=== PATIENT | male | born 1990 | race Caucasian/White ===

== ENCOUNTER 2017-08-23 18:48 | Inpatient (IN) | payer OTHER ==
[2017-08-23 21:05] VITALS: BMI 31.1
--- NOTE | 2017-08-23 21:50 | HP ---
Admission ROS [facility] Chief Complaint: SEEKING REHAB SERVICES. Allergies/Adverse Reactions: Allergies Allergy/AdvReac Type Severity Reaction Status Date / Time No Known Allergies Allergy Verified 08/23/17 21:46 History of Present Illness: 27 Y.O. MAN WITH AN EXTENSIVE HISTORY OF MARIJUANA DEPENDENCE IS HERE SEEKING REHAB SERVICES. STATES HE WAS MANDATED BY PAROLE TO COMPLETE INPATIENT TREATMENT. Exam Limitations: Physical Impairment (AMBULATES WITH THE USE OF A CANE) - Ebola screening Have you been sick,other than usual withdrawal symptoms: No - Review of Systems Constitutional: No Symptoms Reported EENT: reports: No Symptoms Reported Respiratory: reports: No Symptoms reported Cardiac: reports: No Symptoms Reported GI: reports: No Symptoms Reported : reports: No Symptoms Reported Musculoskeletal: reports: No Symptoms Reported Integumentary: reports: Other (BLISTER ON BOTH HEELS) Neuro: reports: No Symptoms reported Endocrine: reports: No Symptoms Reported Hematology: reports: No Symptoms Reported Psychiatric: reports: Orientated x3, other (PARANOID SCHIZOPHRENIA) Other Systems: Reviewed and Negative Patient History - Patient Medical History Hx Anemia: No Hx Asthma: No Hx Chronic Obstructive Pulmonary Disease (COPD): No Hx Cancer: No Hx Cardiac Disorders: No Hx Congestive Heart Failure: No Hx Hypertension: No Hx Hypercholesterolemia: No Hx Pacemaker: No HX Cerebrovascular Accident: No Hx Seizures: No Hx Dementia: No Hx Diabetes: No Hx Gastrointestinal Disorders: No Hx Liver Disease: No Hx Genitourinary Disorders: No Hx Sexually Transmitted Disorders: No Hx Renal Disease (ESRD): No Hx Thyroid Disease: No Hx Human Immunodeficiency Virus (HIV): No Hx Hepatitis C: No Hx Depression: No Hx Suicide Attempt: No Hx Bipolar Disorder: No Hx Schizophrenia: Yes - Patient Surgical History Past Surgical History: No - PPD History Previous Implant?: Yes Documented Results: Negative w/o proof PPD to be Administered?: Yes - Reproductive History Patient is a Female of Child Bearing Age (11 -55 yrs old): No - Smoking Cessation Smoking history: Current every day smoker Have you smoked in the past 12 months: Yes Aproximately how many cigarettes per day: 20 Initiated information on smoking cessation: Yes 'Breaking Loose' booklet given: 08/23/17 - Substance & Tx. History Hx Alcohol Use: No Hx Substance Use: Yes Substance Use Type: Marijuana Hx Substance Use Treatment: Yes (DECEMBER 2016: REHAB AT [facility] ) - Substances Abused Marijuana/Hashish Route: Smoking Frequency: 1-3 times last 30 days Amount used: $100 Age of first use: 12 Date of Last Use: 08/21/17 Family Disease History - Family Disease History Family Disease History: Diabetes: Grandparent (BREAST C ), [place]: Grandparent Admission Physical Exam [facility] - Vital Signs Vital Signs: Vital Signs - 24 hr 08/23/17 21:03 Temperature 98.1 F Pulse Rate 93 H Respiratory 18 Rate Blood Pressure 143/79 - Physical General Appearance: Yes: Disheveled HEENTM: Yes: Hearing grossly Normal, Normocephalic, Normal Voice Respiratory: Yes: Chest Non-Tender, Lungs Clear, Normal Breath Sounds, No Respiratory Distress, No Accessory Muscle Use Neck: Yes: No masses,lesions,Nodules, Trachea in good position Breast: Yes: Breast Exam Deferred Cardiology: Yes: Regular Rhythm, Regular Rate Abdominal: Yes: Non Tender, Flat, Soft Genitourinary: Yes: Other (NO COMPLAINTS REPORTED) Back: Yes: Normal Inspection Musculoskeletal: Yes: Other (UNSTEADY GAIT: AMBULATES WITH) Extremities: Yes: Normal Inspection, Other (BLISTERS ON HIS B/L HEELS) Neurological: Yes: Alert, Normal Mood/Affect, Normal Response Integumentary: Yes: Normal Color, Dry, Warm Lymphatic: Yes: Within Normal Limits - Diagnostic (1) Cannabis dependence, uncomplicated Current Visit: Yes Status: Chronic (2) Unsteady gait Current Visit: Yes Status: Chronic (3) Rhabdomyolysis Current Visit: Yes Status: Chronic Cleared for Admission [facility] - Detox or Rehab [facility] Level of Care: Observation Bed [facility] Breath Alcohol Content Breath Alcohol Content: 0 Urine Drug Screen - Results Drug Screen Negative: No Urine Drug Screen Results: THC-Marijuana Inpatient Rehab Admission - Initial Determination Are CD services needed?: Yes Free of communicable disease: Yes Not in need of hospitalization: Yes - Rehab Admission Criteria Previous failed treatment: Yes Poor recovery environment: No Comorbidities: No Lacks judgement: No Patient is meeting Inpatient Rehab admission criteria:: Yes
[2017-08-23] MEDS ORDERED: P-EPHED 60MG/TRIPROLIDI 2.5MG TABLET PO PRN (22:24)
[2017-08-23] MEDS ORDERED: MAG HYDROX/AL HYDROX/SIMETH 30 ML UNIT-DOSE CUP PO PRN (22:24)
[2017-08-23] MEDS ORDERED: NICOTINE POLACRILEX 2 MG GUM BC PRN (22:24)
[2017-08-23] MEDS ORDERED: guaiFENesin/D-METHORPHAN HB 10 ML UNIT-DOSE CUPS PO PRN (22:24)
[2017-08-23] MEDS ORDERED: IBUPROFEN 400 MG TABLET (FP) PO PRN (22:24)
[2017-08-23] MEDS ORDERED: MENTHOL/PHENOL 1 EACH UD MM PRN (22:24)
[2017-08-23] MEDS ORDERED: hydrOXYzine PAMOATE 50 MG CAPSULE (FP) PO PRN (22:24)
[2017-08-23] MEDS ORDERED: ACETAMINOPHEN 325 MG TABLET (FP) PO PRN (22:24)
[2017-08-23] MEDS ORDERED: MAGNESIUM CITRATE 300 ML BOTTLE PO PRN (22:24)
[2017-08-23] MEDS ORDERED: MAGNESIUM HYDROX 2400MG/30ML ORAL SUSPENSION 30 ML CUP PO PRN (22:24)
[2017-08-23] MEDS ORDERED: TUBERCULIN PPD 5 TU/0.1ML VIAL ID ONE (23:00)
[2017-08-24] MEDS: NICOTINE 21 MG/24 HOURS TOPICAL PATCH TD SCH (09:54)
[2017-08-24] MEDS: PRENATAL VITAMINS W/ FOLIC ACID TABLET (FP) PO SCH (09:54)
[2017-08-24 10:04] LABS: HEMATOCRIT 43.1 % (35.4-49); HEMOGLOBIN 13.9 GM/dL (11.7-16.9); MCHC 32.4 g/dl (32.0-35.9); MEAN CELL VOLUME 86.4 fl (80-96); MEAN PLT VOLUME 9.5 fl (7.5-11.1); PLATELET COUNT 169 K/MM3 (134-434); RBC 4.99 M/mm3 (4.00-5.60); RDW 12.6 % (11.9-15.9); WHITE BLOOD COUNT 7.8 K/mm3 (4.0-10.0)
[2017-08-24 10:19] LABS: CHLORIDE 108 mmol/L (98-107); POTASSIUM 4.1 mmol/L (3.5-5.1); SODIUM 142 mmol/L (136-145)
[2017-08-24 10:29] LABS: ALBUMIN 3.2 g/dl (3.4-5.0); ALK PHOS 77 U/L (45-117); ANION GAP 9 (8-16); BILIRUBIN,TOTAL 0.4 mg/dL (0.2-1.0); BLOOD UREA NITROGEN 12 mg/dL (7-18); CALCIUM 8.3 mg/dL (8.5-10.1); CO2 25 mmol/L (21-32); CREATININE 0.8 mg/dL (0.7-1.3); GLUCOSE,RANDOM 92 mg/dL (74-106); SGOT/AST 21 U/L (15-37); SGPT/ALT 26 U/L (12-78); TOT PROT 6.4 g/dl (6.4-8.2)
[2017-08-24] MEDS: THIAMINE HCL 100 MG TABLET (FP) PO SCH (21:19)
--- NOTE | 2017-08-25 07:19 | EKG ---
Test Reason : Blood Pressure : / mmHG Vent. Rate : 076 BPM Atrial Rate : 076 BPM P-R Int : 136 ms QRS Dur : 082 ms QT Int : 380 ms P-R-T Axes : 055 074 052 degrees QTc Int : 427 ms NORMAL SINUS RHYTHM NORMAL ECG NO PREVIOUS ECGS AVAILABLE BASELINE ARTIFACT Confirmed by NAM COLEMAN, MARTITA ([id number]) on 08/25/2017 7:19:03 AM Referred By: Confirmed By:MARTITA BROWNING MD
[2017-08-25] MEDS: NICOTINE 21 MG/24 HOURS TOPICAL PATCH TD SCH (09:32)
[2017-08-25] MEDS: PRENATAL VITAMINS W/ FOLIC ACID TABLET (FP) PO SCH (09:32)
[2017-08-25 10:09] LABS: URINE APPEARANCE CLEAR; URINE BILIRUBIN NEGATIVE (NEGATIVE); URINE BLOOD 1+ (NEGATIVE); URINE COLOR LTYELLOW; URINE GLUCOSE (UA) NEGATIVE (NEGATIVE); URINE KETONE NEGATIVE (NEGATIVE); URINE LEUK ESTERASE NEGATIVE (NEGATIVE); URINE NITRITE NEGATIVE (NEGATIVE); URINE PROTEIN NEGATIVE (NEGATIVE); URINE UROBILINOGEN NEGATIVE mg/dL (0.2-1.0)
[2017-08-25 10:55] LABS: URINE HYALINE CAST 2 /lpf
[2017-08-25] MEDS: THIAMINE HCL 100 MG TABLET (FP) PO SCH (21:19)
[2017-08-26] MEDS: PRENATAL VITAMINS W/ FOLIC ACID TABLET (FP) PO SCH (09:35)
[2017-08-26] MEDS: NICOTINE 21 MG/24 HOURS TOPICAL PATCH TD SCH (09:35)
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
[2017-08-26] MEDS: THIAMINE HCL 100 MG TABLET (FP) PO SCH (21:16)
[2017-08-27] MEDS: PRENATAL VITAMINS W/ FOLIC ACID TABLET (FP) PO SCH (09:39)
[2017-08-27] MEDS: NICOTINE 21 MG/24 HOURS TOPICAL PATCH TD SCH (09:39)
--- NOTE | 2017-08-27 15:36 | PN ---
Psychiatric Progress Note Vital Signs: Vital Signs Period Temp Pulse Resp BP Sys/Davis Pulse Ox Last 24 Hr 98.0 F 78 16-20 103/56 Date of Session: 08/27/17 Chief Complaint:: progress update HPI: Patient is a 27 year old male with history of cannabis dependence comrbid schizophrenia. ROS: Was admited to [facility] for rhabdomyolysis and was discharged on 08/22/17. Ambulates with a cane secondary to muscle weakness and blisters on bilateral feet. Current Medications: Active Medications Generic Name Dose Route Start Last Admin Trade Name Freq PRN Reason Stop Dose Admin Acetaminophen 650 mg 08/23/17 22:24 Tylenol - PO Q4H PRN PAIN Al Hydroxide/Mg Hydroxide 30 ml 08/23/17 22:24 Mylanta Oral Suspension - PO Q6H PRN DYSPEPSIA Eucalyptus/Menthol/Phenol/Sorbitol 1 each 08/23/17 22:24 Cepastat Lozenge - MM Q4H PRN SORE THROAT Guaifenesin 10 ml 08/23/17 22:24 Robitussin Dm - PO Q6H PRN COUGH Hydroxyzine Pamoate 50 mg 08/23/17 22:24 Vistaril - PO Q4H PRN AGITATION Ibuprofen 400 mg 08/23/17 22:24 08/24/17 13:32 Motrin - PO 400 mg Q6H PRN Administration SEVERE PAIN Loperamide HCl 4 mg 08/23/17 22:24 Imodium - PO Q6H PRN DIARRHEA Magnesium Citrate 300 ml 08/23/17 22:24 Citroma - PO Q48H PRN CONSTIPATION Magnesium Hydroxide 30 ml 08/23/17 22:24 Milk Of Magnesia - PO DAILY PRN CONSTIPATION Nicotine 21 mg 08/24/17 10:00 08/27/17 09:39 Nicoderm Patch - TD Not Given DAILY KYLAH Nicotine Polacrilex 2 mg 08/23/17 22:24 Nicorette Gum - BC Q2H PRN NICOTINE REPLACEMENT RX Multivit/Folic Acid/Iron 1 tab 08/24/17 10:00 08/27/17 09:39 Vitamins (Sjr) - PO Not Given DAILY KYLAH Pseudoephedrine/Triprolidine 1 combo 08/23/17 22:24 Actifed - PO TID PRN NASAL CONGESTION Thiamine HCl 100 mg 08/24/17 22:00 08/26/17 21:16 Vitamin B1 - PO Not Given HS KYLAH Current Side Effect: No Lab tests ordered: No Lab tests reviewed: Yes Provider note:: Reviewed the chart, TAL Ojeda admission notes appreciated, patient was seen, he reports he has been in [facility], does not recall his pyshciatrist name, states was on Invega Sustenna injection 156 mg , had on 07/31/17, as per his pharmacy record he refilled injection on July 02 and July 28. Call placed to [facility], was unable to speak to his case management assistant, patient unable to tell the name of his worker. Reported that Risperdal Consta injection worked better for him and willing to get Risprerdal injection. Plan to reach his program to verify his dosage, continue the same management. Total face to face time:: 25 Mental Status Exam - Mental Status Exam Alert and Oriented to: Time, Place, Person Cognitive Function: Impaired Patient Appearance: Unkempt, Disheveled Mood: Sad Affect: Blunted, Constricted Patient Behavior: Cooperative Speech Pattern: Appropriate Voice Loudness: Normal Thought Process: Goal Oriented Thought Disorder: Not Present Hallucinations: Denies Suicidal Ideation: Denies Homicidal Ideation: Denies Insight/Judgement: Fair Sleep: Fair Appetite: Fair Gait/Station: Other Psychiatric Treatment Plan - Problem List (1) Cannabis dependence, uncomplicated Current Visit: Yes (2) Rhabdomyolysis Current Visit: Yes (3) Schizophrenia Current Visit: Yes
[2017-08-27] MEDS: THIAMINE HCL 100 MG TABLET (FP) PO SCH (21:27)
[2017-08-28] MEDS: NICOTINE 21 MG/24 HOURS TOPICAL PATCH TD SCH (09:59)
[2017-08-28] MEDS: PRENATAL VITAMINS W/ FOLIC ACID TABLET (FP) PO SCH (09:59)
[2017-08-28] MEDS: PETROLATUM, WHITE 30 GM TUBE TP SCH ×2 (13:00→21:13)
--- NOTE | 2017-08-28 16:24 | PN ---
S Progress Note (SOAP) Subjective: Patient c/o cold sore on lips and requesting ointment for his lip. As per patient, he will ask his mother to bring otc ointment for him to put on his lip. Patient aware that any medication that his mother brings has to be sealed and it will be sent to pharmacy for labeling. Objective: 08/28/17 16:24 Last Vital Signs Temp Pulse Resp BP Pulse Ox 97.4 F L 76 20 106/54 08/28/17 06:40 08/28/17 06:40 08/28/17 06:40 08/28/17 06:40 PE: Mouth: moist mucous membrane, lower lip with small mildly erythemic papules Laboratory Tests 08/24/17 08/24/17 08/24/17 08:00 08:00 08:00 WBC 7.8 RBC 4.99 Hgb 13.9 Hct 43.1 MCV 86.4 MCH 28.0 MCHC 32.4 RDW 12.6 Plt Count 169 MPV 9.5 Sodium 142 Potassium 4.1 Chloride 108 H Carbon Dioxide 25 Anion Gap 9 BUN 12 Creatinine 0.8 Creat Clearance w eGFR > 60 Random Glucose 92 Calcium 8.3 L Total Bilirubin 0.4 AST 21 ALT 26 Alkaline Phosphatase 77 Total Protein 6.4 Albumin 3.2 L Urine Color Urine Appearance Urine pH Ur Specific Mears Urine Protein Urine Glucose (UA) Urine Ketones Urine Blood Urine Nitrite Urine Bilirubin Urine Urobilinogen Ur Leukocyte Esterase Urine WBC (Auto) Urine RBC (Auto) Hyaline Casts RPR Titer Nonreactive 08/25/17 09:30 WBC RBC Hgb Hct MCV MCH MCHC RDW Plt Count MPV Sodium Potassium Chloride Carbon Dioxide Anion Gap BUN Creatinine Creat Clearance w eGFR Random Glucose Calcium Total Bilirubin AST ALT Alkaline Phosphatase Total Protein Albumin Urine Color Ltyellow Urine Appearance Clear Urine pH 5.0 Ur Specific Mears 1.014 Urine Protein Negative Urine Glucose (UA) Negative Urine Ketones Negative Urine Blood 1+ H Urine Nitrite Negative Urine Bilirubin Negative Urine Urobilinogen Negative Ur Leukocyte Esterase Negative Urine WBC (Auto) <1 Urine RBC (Auto) None Hyaline Casts 2 RPR Titer Labs noted: UA shows 1+ blood Assessment: 08/28/17 16:28 Patient seen for cold sore on lip; noted with microscopic hematuria Plan: Cold sore: petrolatum jelly prn Microscopic hematuria: encouraged to drink more water, repeat UA
[2017-08-28] MEDS: THIAMINE HCL 100 MG TABLET (FP) PO SCH (21:13)
[2017-08-29] MEDS: PRENATAL VITAMINS W/ FOLIC ACID TABLET (FP) PO SCH (10:11)
[2017-08-29] MEDS: NICOTINE 21 MG/24 HOURS TOPICAL PATCH TD SCH (10:11)
[2017-08-29] MEDS: PETROLATUM, WHITE 30 GM TUBE TP SCH ×2 (10:11→22:19)
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
[2017-08-29] MEDS: THIAMINE HCL 100 MG TABLET (FP) PO SCH (21:11)
[2017-08-29] MEDS: risperiDONE 3 MG TABLET PO SCH (21:12)
[2017-08-30] MEDS: PETROLATUM, WHITE 30 GM TUBE TP SCH ×2 (11:07→21:16)
[2017-08-30] MEDS: NICOTINE 21 MG/24 HOURS TOPICAL PATCH TD SCH (11:07)
[2017-08-30] MEDS: PRENATAL VITAMINS W/ FOLIC ACID TABLET (FP) PO SCH (11:07)
[2017-08-30] MEDS: risperiDONE 3 MG TABLET PO SCH ×2 (11:07→21:16)
[2017-08-30 15:03] LABS: URINE APPEARANCE CLEAR; URINE BILIRUBIN NEGATIVE (NEGATIVE); URINE BLOOD NEGATIVE (NEGATIVE); URINE COLOR LTYELLOW; URINE GLUCOSE (UA) NEGATIVE (NEGATIVE); URINE KETONE NEGATIVE (NEGATIVE); URINE LEUK ESTERASE NEGATIVE (NEGATIVE); URINE NITRITE NEGATIVE (NEGATIVE); URINE PROTEIN NEGATIVE (NEGATIVE); URINE UROBILINOGEN NEGATIVE mg/dL (0.2-1.0)
[2017-08-30] MEDS: THIAMINE HCL 100 MG TABLET (FP) PO SCH (21:17)
[2017-08-31] MEDS: NICOTINE 21 MG/24 HOURS TOPICAL PATCH TD SCH (11:04)
[2017-08-31] MEDS: PRENATAL VITAMINS W/ FOLIC ACID TABLET (FP) PO SCH (11:04)
[2017-08-31] MEDS: PETROLATUM, WHITE 30 GM TUBE TP SCH ×2 (11:05→21:20)
[2017-08-31] MEDS: risperiDONE 3 MG TABLET PO SCH ×2 (11:05→21:20)
[2017-08-31] MEDS: THIAMINE HCL 100 MG TABLET (FP) PO SCH (21:20)
[2017-09-01] MEDS: LOPERAMIDE HCL 2 MG CAPSULE PO PRN (09:11)
[2017-09-01] MEDS: PETROLATUM, WHITE 30 GM TUBE TP SCH ×2 (09:14→21:18)
[2017-09-01] MEDS: PRENATAL VITAMINS W/ FOLIC ACID TABLET (FP) PO SCH (09:14)
[2017-09-01] MEDS: NICOTINE 21 MG/24 HOURS TOPICAL PATCH TD SCH (09:14)
[2017-09-01] MEDS: risperiDONE 3 MG TABLET PO SCH ×2 (09:14→21:17)
[2017-09-01] MEDS: THIAMINE HCL 100 MG TABLET (FP) PO SCH (21:18)
[2017-09-02] MEDS: NICOTINE 21 MG/24 HOURS TOPICAL PATCH TD SCH (10:40)
[2017-09-02] MEDS: PRENATAL VITAMINS W/ FOLIC ACID TABLET (FP) PO SCH (10:40)
[2017-09-02] MEDS: risperiDONE 3 MG TABLET PO SCH ×2 (10:41→21:23)
[2017-09-02] MEDS: PETROLATUM, WHITE 30 GM TUBE TP SCH ×2 (10:41→21:23)
--- NOTE | 2017-09-02 15:49 | PN ---
[facility] Progress Note Note: staff reported that patient refused Risperdal today, patient was seen and asked reason, he states "it was only once and will continue to take pills".
[2017-09-02] MEDS: THIAMINE HCL 100 MG TABLET (FP) PO SCH (21:24)
[2017-09-03] MEDS: risperiDONE 3 MG TABLET PO SCH ×2 (09:53→21:39)
[2017-09-03] MEDS: PRENATAL VITAMINS W/ FOLIC ACID TABLET (FP) PO SCH (09:53)
[2017-09-03] MEDS: PETROLATUM, WHITE 30 GM TUBE TP SCH ×2 (09:53→21:39)
[2017-09-03] MEDS: NICOTINE 21 MG/24 HOURS TOPICAL PATCH TD SCH (09:53)
[2017-09-03] MEDS: LOPERAMIDE HCL 2 MG CAPSULE PO PRN (12:36)
[2017-09-03] MEDS: THIAMINE HCL 100 MG TABLET (FP) PO SCH (21:39)
[2017-09-04] MEDS: PETROLATUM, WHITE 30 GM TUBE TP SCH ×2 (09:48→21:20)
[2017-09-04] MEDS: NICOTINE 21 MG/24 HOURS TOPICAL PATCH TD SCH (09:48)
[2017-09-04] MEDS: risperiDONE 3 MG TABLET PO SCH ×2 (09:48→21:20)
[2017-09-04] MEDS: PRENATAL VITAMINS W/ FOLIC ACID TABLET (FP) PO SCH (09:49)
[2017-09-04] MEDS: THIAMINE HCL 100 MG TABLET (FP) PO SCH (21:20)
[2017-09-05 06:36] VITALS: BP 116/69; PULSE 90; TEMP 98.1
[2017-09-05] MEDS: PETROLATUM, WHITE 30 GM TUBE TP SCH (09:13)
[2017-09-05] MEDS: NICOTINE 21 MG/24 HOURS TOPICAL PATCH TD SCH (09:13)
[2017-09-05] MEDS: PRENATAL VITAMINS W/ FOLIC ACID TABLET (FP) PO SCH (09:13)
[2017-09-05] MEDS: risperiDONE 3 MG TABLET PO SCH (09:13)
--- NOTE | 2017-09-05 09:59 | PN ---
Psychiatric Progress Note Vital Signs: Vital Signs Period Temp Pulse Resp BP Sys/Davis Pulse Ox Last 24 Hr 98.1 F 90 18-20 116/69 Date of Session: 09/05/17 Chief Complaint:: discharge visit HPI: Patient has addressed cannabis dependence comrbid schizophrenia. ROS: WNL Current Medications: Active Medications Generic Name Dose Route Start Last Admin Trade Name Freq PRN Reason Stop Dose Admin Acetaminophen 650 mg 08/23/17 22:24 Tylenol - PO Q4H PRN PAIN Al Hydroxide/Mg Hydroxide 30 ml 08/23/17 22:24 Mylanta Oral Suspension - PO Q6H PRN DYSPEPSIA Eucalyptus/Menthol/Phenol/Sorbitol 1 each 08/23/17 22:24 Cepastat Lozenge - MM Q4H PRN SORE THROAT Guaifenesin 10 ml 08/23/17 22:24 Robitussin Dm - PO Q6H PRN COUGH Hydroxyzine Pamoate 50 mg 08/23/17 22:24 Vistaril - PO Q4H PRN AGITATION Ibuprofen 400 mg 08/23/17 22:24 08/24/17 13:32 Motrin - PO 400 mg Q6H PRN Administration SEVERE PAIN Loperamide HCl 4 mg 08/23/17 22:24 09/03/17 12:36 Imodium - PO 4 mg Q6H PRN Administration DIARRHEA Magnesium Citrate 300 ml 08/23/17 22:24 Citroma - PO Q48H PRN CONSTIPATION Magnesium Hydroxide 30 ml 08/23/17 22:24 Milk Of Magnesia - PO DAILY PRN CONSTIPATION Nicotine 21 mg 08/24/17 10:00 09/05/17 09:13 Nicoderm Patch - TD Not Given DAILY KYLAH Nicotine Polacrilex 2 mg 08/23/17 22:24 Nicorette Gum - BC Q2H PRN NICOTINE REPLACEMENT RX Petrolatum 1 applic 08/28/17 12:45 09/05/17 09:13 Vaseline TP 09/07/17 12:44 Not Given BID KYLAH Multivit/Folic Acid/Iron 1 tab 08/24/17 10:00 09/05/17 09:13 Vitamins (Sjr) - PO Not Given DAILY KYLAH Pseudoephedrine/Triprolidine 1 combo 08/23/17 22:24 Actifed - PO TID PRN NASAL CONGESTION Risperidone 3 mg 08/29/17 22:00 09/05/17 09:13 Risperdal - PO 3 mg BID KYLAH Administration Thiamine HCl 100 mg 08/24/17 22:00 09/04/17 21:20 Vitamin B1 - PO Not Given HS KYLAH Current Side Effect: No Lab tests ordered: No Lab tests reviewed: Yes Provider note:: Patient has completed today his treatment and met his goals, will continue to address his issues at [facility]. He focused on importance of changning attitude for the utilization of supports available to prevent relapses. Patient responded well to medication managment, no side- effects reported, patient was encouraed to take medicatios as directed, scripts for Risperdal 3 mg po bid provided, patient is stable for discharge today. Total face to face time:: 20 Mental Status Exam - Mental Status Exam Alert and Oriented to: Time, Place Cognitive Function: Grossly Intact Patient Appearance: Well Groomed Mood: Hopeful Affect: Appropriate, Mood Congruent Patient Behavior: Appropriate, Cooperative Speech Pattern: Appropriate Voice Loudness: Normal Thought Process: Intact, Goal Oriented Thought Disorder: Not Present Hallucinations: Denies Suicidal Ideation: Denies Homicidal Ideation: Denies Insight/Judgement: Fair Sleep: Fair Appetite: Fair Muscle strength/Tone: Normal Gait/Station: Normal
== END 2017-09-05 11:05 | disposition home or self-care (01) | DRG 772 ==
LOC: YASAS 18:48 → Y5N 22:02
PROVIDERS: ADMIT Psychiatry & Neurology Psychiatry; ATTEND Psychiatry & Neurology Psychiatry
PROC: HZ42ZZZ Group Counseling for Substance Abuse Treatment, Cognitive-Behavioral (ICD-10-PCS; principal; 2017-08-23)
DX: F12.20 Cannabis dependence, uncomplicated (principal); F20.9 Schizophrenia, unspecified; R26.81 Unsteadiness on feet; Z99.89 Dependence on other enabling machines and devices
CPT/HCPCS: 36415; 80053; 81003; 81015; 85027; 86593; 93005; 93010

== ENCOUNTER 2025-04-30 20:35 | Emergency (ER) | payer SELFPAY ==
[2025-04-30 20:40] VITALS: BP 129/94; PULSE 96; RESP 20; TEMP 97.9; BMI 26.4
[2025-04-30] MEDS ORDERED: METHOCARBAMOL 500 MG TABLET ONE (21:21)
[2025-04-30] MEDS ORDERED: KETOROLAC TROMETHAMINE 30 MG/1 ML VIAL ONE (21:22)
[2025-04-30] MEDS: KETOROLAC TROMETHAMINE 30 MG/1 ML VIAL IM ONE (21:35)
[2025-04-30] MEDS: METHOCARBAMOL 750 MG TABLET PO ONE (21:35)
== END 2025-04-30 22:12 | disposition home or self-care (01) ==
LOC: JER 20:35
PROC: 3E0233Z Introduction of Anti-inflammatory into Muscle, Percutaneous Approach (ICD-10-PCS; principal; 2025-04-30)
DX: S39.012A Strain of muscle, fascia and tendon of lower back, initial encounter (principal); X50.1XXA Overexertion from prolonged static or awkward postures, initial encounter
CPT/HCPCS: 99284-25